=== PATIENT | male | born 1975 | race Caucasian/White ===

== ENCOUNTER 2016-12-31 20:10 | Emergency (ER) | payer MEDICAID ==
[2016-12-31] MEDS ORDERED: Ketorolac 60 MG/2 ML SDV IM ONE (21:31)
[2016-12-31] MEDS ORDERED: Diphtheria,Pertussis(Acell),Tetanus Vaccine 0.5 ML SDV IM ONE (21:32)
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
[2016-12-31 23:07] VITALS: BP 137/80
[2016-12-31] MEDS ORDERED: HYDROmorphone 1 MG/ML Syringe IM ONE (23:41)
[2016-12-31] MEDS ORDERED: HYDROmorphone 1 MG/ML Syringe ONE (23:43)
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
--- NOTE | 2017-01-01 10:19 | CR ---
Lumbar Spine 2 or 3V HISTORY: trauma, pain FINDINGS: Lumbar vertebral bodies appear intact and in satisfactory alignment. No compression fracture or dis k space narrowing is seen. Spinous processes, posterior elements, and pedicles appear intact and in satisfactory alignment. Perivertebral soft tissues appear normal. There is slight scoliosis convex t o the right. IMPRESSION: Slight lumbar scoliosis convex to the right. No acute lumbar spine abnormality identified.
--- NOTE | 2017-01-01 10:20 | CR ---
Hip Min 2V or 3V Lt HISTORY: trauma, pain FINDINGS: No acute fracture or dislocation is identified. Bony architecture and joint spaces are preserved. Soft tissues are unremarkable. IMPRESSION: No acute left hip abnormality identified.
--- NOTE | 2017-01-01 10:21 | CR ---
Wrist Comp Min 3V Lt HISTORY: trauma, pain FINDINGS: No acute fracture or dislocation is identified. Bony architecture and joint spaces are preserved. Carpal bone alignment is satisfactory. Soft tissues are unremarkable. IMPRESSION: No acute left wrist abnormality identified.
== END 2017-01-01 00:12 | disposition home or self-care (01) ==
LOC: JP.ED 20:10
DX: S63.502A Unspecified sprain of left wrist, initial encounter (principal); S30.0XXA Contusion of lower back and pelvis, initial encounter; S70.01XA Contusion of right hip, initial encounter; F17.210 Nicotine dependence, cigarettes, uncomplicated; Z98.890 Other specified postprocedural states; Z88.2 Allergy status to sulfonamides; Z23 Encounter for immunization; V86.59XA Driver of other special all-terrain or other off-road motor vehicle injured in nontraffic accident, initial encounter
CPT/HCPCS: 36415; 72072; 72100; 73110; 73502; 80053; 80305; 81001; 85025; 90471; 90715; 96372; 99284; J1170; J1885

== ENCOUNTER 2018-10-11 17:20 | Emergency (ER) | payer SELFPAY ==
[2018-10-11 17:39] VITALS: BP 129/84
[2018-10-11] MEDS ORDERED: Tetracaine HCl/PF 0.5% 4 ML Bottle EYERT ONE (19:08)
--- NOTE | 2018-10-11 19:30 | EDM.PDOC ---
ED HPI GENERAL MEDICAL PROBLEM - General Chief Complaint: Eye Problems Stated Complaint: metal in eye Time Seen by Provider: 10/11/18 19:05 Source of Information: Reports: Patient History Limitations: Reports: No Limitations - History of Present Illness INITIAL COMMENTS - FREE TEXT/NARRATIVE: 43-year-old male was drilling some steel yesterday and felt a small piece of metal enter his right eye. He was unable to quit by rinsing. He started noticing some purulent discharge from his right eye today. He went to a clinic in [place] and they attempted to remove the foreign body with a Q-tip but gave up and recommended that he come to the emergency room. Pain level 2/10 made worse with blinking. No change in vision. He does not wear glasses or use contact lenses. Right Eye Pain Score (Numeric/FACES): 4 - Related Data Allergies Allergy/AdvReac Type Severity Reaction Status Date / Time Sulfa (Sulfonamide Allergy Cannot Verified 10/11/18 17:39 Antibiotics) Remember Home Meds: Home Meds NK [No Known Home Meds] 12/31/16 [History] Past Medical History - Past Health History Medical/Surgical History: Denies Medical/Surgical History Musculoskeletal History: Reports: Fracture, Other (See Below) Other Musculoskeletal History: c/o of R wrist pain. c/o L wrist pain - Past Surgical History Head Surgeries/Procedures: Reports: None HEENT Surgical History: Reports: Tonsillectomy Musculoskeletal Surgical History: Reports: Shoulder Surgery Dermatological Surgical History: Reports: None Social & Family History - Tobacco Use Smoking Status *Q: Current Every Day Smoker Years of Tobacco use: 15 Packs/Tins Daily: 0.5 Used Tobacco, but Quit: No Second Hand Smoke Exposure: No - Caffeine Use Caffeine Use: Reports: Coffee, Energy Drinks, Soda, Tea - Recreational Drug Use Recreational Drug Use: No ED ROS GENERAL - Review of Systems Review Of Systems: See Below Constitutional: Reports: No Symptoms HEENT: Reports: No Symptoms Respiratory: Reports: No Symptoms ED EXAM GENERAL W FULL EYE - Physical Exam Exam: See Below Exam Limited By: No Limitations General Appearance: Alert Eye Exam: Right Eye: Corneal Abrasion, Other (There is a small rust ring present on the right cornea at o'clock position. No foreign body.) Eyelids: Bilateral: Normal Appearance Conjunctiva & Sclera: Right: Injected Ears: Normal External Exam Nose: Normal Inspection Course - Vital Signs Last Recorded V/S: Last Vital Signs Temp 35.4 C 10/11/18 17:43 Pulse 70 10/11/18 17:43 Resp 16 10/11/18 17:43 BP 129/84 10/11/18 17:43 Pulse Ox 97 10/11/18 17:43 - Orders/Labs/Meds Meds: Medications Discontinued Medications Generic Name Dose Route Start Last Admin Trade Name Marcela PRN Reason Stop Dose Admin Tetracaine HCl 0.2 ml 10/11/18 19:08 10/11/18 19:13 Tetracaine 0.5% Steri-Unit Marilu EYERT 10/11/18 19:09 0.2 drop ASDIRECTED ONE Administration Departure - Departure Time of Disposition: 19:30 Disposition: Home, Self-Care 01 Condition: Good Clinical Impression: Corneal abrasion - Discharge Information *PRESCRIPTION DRUG MONITORING PROGRAM REVIEWED*: No *COPY OF PRESCRIPTION DRUG MONITORING REPORT IN PATIENT EDGAR: No Instructions: Corneal Abrasion Referrals: PCP,None [Primary Care Provider] - Forms: ED Department Discharge Additional Instructions: Gentamicin ophthalmic drops were prescribed because he was having some purulent discharge. Care Plan Goals: Follow-up if symptoms worsen or are not resolving after one week. Use over-the- counter analgesics as needed and lubricating drops. - Problem List & Annotations (1) Corneal abrasion SNOMED Code(s): 09315230 Code(s): S05.00XA - INJ CONJUNCTIVA AND CORNEAL ABRASION W/O FB, UNSP EYE, INIT Status: Acute
== END 2018-10-11 19:39 | disposition home or self-care (01) ==
LOC: JP.ED 17:20
DX: T15.01XA Foreign body in cornea, right eye, initial encounter (principal); F17.210 Nicotine dependence, cigarettes, uncomplicated; Z88.2 Allergy status to sulfonamides
CPT/HCPCS: 99283